=== PATIENT | male | born 1980 | race Caucasian/White ===

== ENCOUNTER 2022-12-04 08:00 | Outpatient (CLI) | payer BC ==
[2022-12-04 20:52] LABS: BASOPHILS # (AUTO) 0.1 10^3/uL (0.0-0.1); BASOPHILS % (AUTO) 0.7 %; EOSINOPHILS # (AUTO) 0.1 10^3/uL (0.0-0.7); EOSINOPHILS % (AUTO) 1.2 %; HCT - HEMATOCRIT 46.4 % (42.0-52.0); HGB - HEMOGLOBIN 15.3 g/dL (14.0-18.0); LYMPHOCYTES # (AUTO) 3.3 10^3/uL (1.5-3.5); LYMPHOCYTES % (AUTO) 32.4 %; MEAN CORPUSCULAR HEMOGLOBIN 28.7 pg (27.0-31.0); MEAN CORPUSCULAR VOLUME 87.1 fL (80.0-94.0); MEAN PLATELET VOLUME 12.1 fL (7.4-11.4); MONOCYTES # (AUTO) 0.8 10^3/uL (0.0-1.0); MONOCYTES % (AUTO) 7.8 %; NEUTROPHILS # (AUTO) 5.9 10^3/uL (1.5-6.6); NEUTROPHILS % (AUTO) 57.7 %; PLT - PLATELET COUNT 222 10^3/uL (130-450); RED BLOOD COUNT 5.33 10^6/uL (4.70-6.10); RED CELL DISTRIBUTION WIDTH 13.3 % (12.0-15.0); WHITE BLOOD COUNT 10.2 x10^3/uL (4.8-10.8)
[2022-12-04 21:06] LABS: ALBUMIN 4.5 g/dL (3.2-5.5); ALBUMIN/GLOBULIN RATIO 1.6 (1.0-2.2); BILIRUBIN,TOTAL 0.7 mg/dL (0.2-1.0); CALCIUM 8.7 mg/dL (8.5-10.3); CREATININE 0.7 mg/dL (0.6-1.2); POTASSIUM 3.6 mmol/L (3.5-5.0); TOTAL PROTEIN 7.4 g/dL (6.7-8.2)
[2022-12-04 21:17] LABS: THYROID STIMULATING HORMONE 2.21 uIU/mL (0.34-5.60)
[2022-12-04 21:19] LABS: FREE T3 4.2 pg/mL (2.5-3.9)
[2022-12-04 21:20] LABS: FREE T4 (FREE THYROXINE) 0.99 ng/dL (0.58-1.64)
[2022-12-04 21:24] LABS: ESTIMATED AVERAGE GLUCOSE 94 mg/dL (70-100); HEMOGLOBIN A1c% 4.9 % (4.27-6.07)
== END 2022-12-04 08:01 | disposition home or self-care (01) ==
LOC: LAB.N 08:00
PROVIDERS: ATTEND Registered Nurse
DX: R55 Syncope and collapse (principal); R68.89 Other general symptoms and signs; R06.02 Shortness of breath; R61 Generalized hyperhidrosis
CPT/HCPCS: 36415; 80053; 83036; 84439; 84443; 84481; 85025

== ENCOUNTER 2022-12-05 15:25 | Outpatient (CLI) | payer BC | END 2022-12-05 15:26 | disposition home or self-care (01) | LOC: LAB.N 15:25 | PROVIDERS: ATTEND Registered Nurse | DX: R63.4 Abnormal weight loss (principal); R68.89 Other general symptoms and signs; R61 Generalized hyperhidrosis | CPT/HCPCS: 36415; 82670; 84403 ==

== ENCOUNTER 2023-01-09 07:16 | Outpatient (CLI) | payer BC ==
--- NOTE | 2023-01-09 10:02 | XRAY Report ---
PROCEDURE: Chest 2 View X-Ray INDICATIONS: SHORTNESS OF BREATH, WEIGHT LOSS, SYNCOPE, NIGHT S TECHNIQUE: 2 views of the chest were acquired. COMPARISON: None. FINDINGS: Surgical changes and devices: None. Lungs and pleura: No pleural effusions or pneumothorax. Lungs are clear. Mediastinum: Mediastinal contours appear normal. Heart size is normal. Bones and chest wall: No suspicious bony lesions. Overlying soft tissues appear unremarkable. IMPRESSION: No acute cardiopulmonary process. Reviewed by: Maico Rader on 01/09/2023 10:00 AM PDT Approved by: Maico Rader on 01/09/2023 10:00 AM PDT Station ID: [id number]
--- NOTE | 2023-01-09 10:06 | Ultrasound Report ---
PROCEDURE: Abdomen Limited INDICATIONS: SHORTNESS OF BREATH, WEIGHT LOSS, SYNCOPE, NIGHT S TECHNIQUE: Real-time focused scanning was performed of the abdomen, with image documentation. COMPARISONS: None. FINDINGS: Liver: Increased liver echogenicity, with posterior attenuation, most consistent with moderate to se jose luis hepatic steatosis. Gallbladder: Unremarkable. Biliary ducts: Intrahepatic bile ducts are non-dilated. Extrahepatic bile duct caliber measures 3.5 mm. Normal is 6-7 mm or less in diameter, or 10 mm or less post-cholecystectomy. Pancreas: Visualized portions of the pancreas are sonographically normal. Right kidney: Normal in size and echotexture. Right kidney measures 10.2 cm long. No hydronephrosis or nephrolithiasis. No solid masses. No complex renal cystic lesions which require follow-up. Aorta: Visualized aorta is normal in caliber at less than 3 cm. IVC: Intrahepatic inferior vena cava is patent. Miscellaneous: No free abdominal fluid. IMPRESSION: No acute abnormality. Slightly increased liver echogenicity, commonly caused by mild hepatic steatosis. Reviewed by: Maico Rader on 01/09/2023 10:04 AM PDT Approved by: Maico Rader on 01/09/2023 10:04 AM PDT Station ID: [id number]
--- NOTE | 2023-01-09 12:28 | Ultrasound Report ---
PROCEDURE: Head or Neck Soft Tissue INDICATIONS: SHORTNESS OF BREATH, WEIGHT LOSS, SYNCOPE, NIGHT S TECHNIQUE: Real-time scanning was performed of the thyroid gland, with image documentation. COMPARISON: None FINDINGS: Right: Thyroid lobe measures 5.4 x 2.1 x 1.8 cm, and is homogeneous in echotexture. Left: Thyroid lobe measures 4.2 x 1.8 x 1.5 cm, and is homogenous in echotexture. Isthmus: 4 mm thick. No thyroid nodules visualized. No gland hyperemia identified on Doppler images. IMPRESSION: Unremarkable thyroid ultrasound. Reviewed by: Jani Carrasco MD on 01/09/2023 12:27 PM PDT Approved by: Jani Carrasco MD on 01/09/2023 12:27 PM PDT Station ID: [id number]
== END 2023-01-09 07:17 | disposition home or self-care (01) ==
LOC: DI 07:16
PROVIDERS: ATTEND Registered Nurse
DX: R06.02 Shortness of breath (principal); R55 Syncope and collapse; R63.4 Abnormal weight loss; R61 Generalized hyperhidrosis

== ENCOUNTER 2023-10-08 09:36 | Outpatient (CLI) | payer BC ==
--- NOTE | 2023-10-08 13:00 | XRAY Report ---
PROCEDURE: Hand 3+V BL INDICATIONS: JOINT PAIN, HAND TECHNIQUE: 6 views of the bilateral hand(s) acquired. COMPARISON: None. FINDINGS: Bones: No fractures or dislocations. No suspicious bony lesions. Soft tissues: No suspicious soft tissue calcifications or masses. IMPRESSION: No acute bony abnormality. No significant degenerative changes. Reviewed by: Britton Dong MD on 10/08/2023 12:59 PM [facility] Approved by: Britton Dong MD on 10/08/2023 12:59 PM [facility] Station ID: [id number]
== END 2023-10-08 09:37 | disposition home or self-care (01) ==
LOC: DI.N 09:36
PROVIDERS: ATTEND Physician Assistant
DX: M25.541 Pain in joints of right hand (principal); M25.542 Pain in joints of left hand; G47.00 Insomnia, unspecified; Z13.220 Encounter for screening for lipoid disorders; R94.6 Abnormal results of thyroid function studies
CPT/HCPCS: 36415; 80053; 80061; 83721; 84439; 84443; 84481; 85025; 86200; 86430

== ENCOUNTER 2023-10-08 09:44 | Outpatient (CLI) | payer BC ==
[2023-10-08 12:01] LABS: BASOPHILS # (AUTO) 0.1 10^3/uL (0.0-0.1); BASOPHILS % (AUTO) 0.8 %; EOSINOPHILS # (AUTO) 0.2 10^3/uL (0.0-0.7); EOSINOPHILS % (AUTO) 2.4 %; HCT - HEMATOCRIT 44.6 % (42.0-52.0); HGB - HEMOGLOBIN 14.7 g/dL (14.0-18.0); LYMPHOCYTES % (AUTO) 30.4 %; MEAN CORPUSCULAR HEMOGLOBIN 29.1 pg (27.0-31.0); MEAN CORPUSCULAR VOLUME 88.3 fL (80.0-94.0); MEAN PLATELET VOLUME 12.3 fL (7.4-11.4); MONOCYTES # (AUTO) 0.5 10^3/uL (0.0-1.0); MONOCYTES % (AUTO) 8.2 %; NEUTROPHILS # (AUTO) 3.8 10^3/uL (1.5-6.6); NEUTROPHILS % (AUTO) 57.9 %; PLT - PLATELET COUNT 214 10^3/uL (130-450); RED BLOOD COUNT 5.05 10^6/uL (4.70-6.10); RED CELL DISTRIBUTION WIDTH 13.7 % (12.0-15.0); WHITE BLOOD COUNT 6.6 x10^3/uL (4.8-10.8)
[2023-10-08 12:35] LABS: ALBUMIN 4.5 g/dL (3.2-5.5); ALBUMIN/GLOBULIN RATIO 2.1 (1.0-2.2); ALKALINE PHOSPHATASE 121 IU/L (42-121); ALT ALANINE AMINOTRANSFERASE 24 IU/L (10-60); AST ASPARTATE AMINOTRANSFERASE 22 IU/L (10-42); BILIRUBIN,TOTAL 0.8 mg/dL (0.2-1.0); BUN - BLOOD UREA NITROGEN 10 mg/dL (6-20); CALCIUM 9.2 mg/dL (8.5-10.3); CARBON DIOXIDE - CO2 26 mmol/L (21-32); CHLORIDE 106 mmol/L (101-111); CHOLESTEROL 134 mg/dL; CREATININE 0.7 mg/dL (0.6-1.3); GFR - MDRD 124 (>89); GLUCOSE 97 mg/dL (74-104); HDL CHOLESTEROL 45 mg/dL; LDL CHOLESTEROL,CALCULATED 77 mg/dL; LDL/HDL RATIO 1.7 (<3.6); POTASSIUM 4.3 mmol/L (3.5-4.5); SODIUM 138 mmol/L (135-145); TOTAL PROTEIN 6.6 g/dL (6.4-8.9); TRIGLYCERIDES 60 mg/dL (48-352); VLDL CHOLESTEROL 12 mg/dL
[2023-10-08 12:55] LABS: RHEUMATOID FACTOR NEGATIVE (Negative)
[2023-10-08 14:45] LABS: THYROID STIMULATING HORMONE 2.69 uIU/mL (0.34-5.60)
== END 2023-10-08 09:45 | disposition home or self-care (01) ==
LOC: LAB.N 09:44
PROVIDERS: ATTEND Physician Assistant
DX: G47.00 Insomnia, unspecified (principal); Z13.220 Encounter for screening for lipoid disorders; R94.6 Abnormal results of thyroid function studies; M25.549 Pain in joints of unspecified hand
CPT/HCPCS: 36415; 80053; 80061; 83721; 84439; 84443; 84481; 85025; 86200; 86430